=== PATIENT | female | born 1970 | race African-American/Black ===

== ENCOUNTER 2016-10-30 20:05 | Emergency (ER) | payer MEDICAID ==
[~2016-10-30] VITALS: Ht 154.9 cm; Wt 149.7 kg
[2016-10-30 21:01] LABS: APPEARANCE,URINE SLIGHTLY CLOUDY; KETONES,URINE NEGATIVE (NEGATIVE); LEUKOCYTE ESTERASE ,URINE 1+ (NEGATIVE); NITRITE,URINE NEGATIVE (NEGATIVE); PH,URINE 5 (4.5-8.0); PROTEIN,URINE 3+ (NEGATIVE); UROBILINOGEN,URINE NORMAL MG/DL (0.0-1.0)
[2016-10-30 21:09] LABS: BACTERIA,URINE MODERATE /HPF; RBC,URINE 15-20 /HPF (0 - 2); SQUAMOUS EPITHELIAL CELL,UR FEW /LPF (NONE/OCC); YEAST,URINE FEW /HPF
[2016-10-30] MEDS ORDERED: PROVERA10 MG ORAL (22:27)
[2016-10-30 23:10] VITALS: BP 132/81
--- NOTE | 2016-10-31 01:24 | Emergency Room Report ---
History of Present Illness General Chief Complaint: Female Urogenital Problems Source: Patient Present Illness HPI Patient is a 46-year-old female who presented after increased bleeding. Patient states that she was not . She had been having increased bleeding for approximately one month. Patient had gradual onset of symptoms. She denied any recent fevers.The patient denied feeling dizzy or lightheaded.She denied taking any anticoagulation. Allergies: Coded Allergies: No Known Allergies (Unverified , 10/30/16) Patient History Past Medical History: see triage record Last Menstrual Period: Currently on menstrual period Now: No Reviewed Nursing Documentation: PMH: Agreed, PSxH: Agreed Nursing Documentation-PMH Past Medical History: No History, Except For Hx Hypertension: Yes Hx Asthma: Yes Review of Systems All Other Systems: negative except mentioned in HPI Physical Exam Vital Signs Date Time Temp Pulse Resp B/P Pulse Ox O2 Delivery O2 Flow Rate FiO2 10/30/16 20:15 98.1 91 16 136/84 98 Room Air Sp02 EP Interpretation: reviewed, normal General Appearance: normal inspection, well appearing, no apparent distress, alert, GCS 15, obese Head: atraumatic ENT: normal ENT inspection, hearing grossly normal, normal voice Neck: normal inspection, full range of motion, supple, no bony tend Respiratory: normal inspection, lungs clear, normal breath sounds, no respiratory distress, no retraction, no wheezing Cardiovascular #1: regular rate, rhythm, no edema Gastrointestinal: normal inspection, normal bowel sounds, non tender, soft, no guarding, no hernia, overweight Genitourinary: no CVA tenderness, os closed Musculoskeletal: normal inspection, back normal, normal range of motion Neurologic: normal inspection, alert, oriented x3, responsive, demand generation manager III-XII nml as tested, speech normal Psychiatric: normal inspection, judgement/insight normal, mood/affect normal Skin: normal inspection, normal color, no rash Medical Decision Making Diagnostic Impression: Primary Impression: Metrorrhagia ER Course Patient presented for vaginal bleeding. Differential diagnosis included wasn't limited to ectopic , menorrhagia, coagulopathy, incomplete , threatened among others. Patient's benign exam and does not appear to require any further imaging or laboratory testing at this time. test was negative. Patient was given prescription for oral contraceptive pills she was advised followup with her [employer].The patient is advised to follow up with primary care doctor in 1-2 days. Patient is advised to return if any worsening condition or if any changes in status that are concerning. Last Vital Signs Date Time Temp Pulse Resp B/P Pulse Ox O2 Delivery O2 Flow Rate FiO2 10/30/16 23:10 97.9 84 15 132/81 99 Room Air Status: improved Disposition: HOME, SELF-CARE Condition: Stable Scripts Medroxyprogesterone Acet* (PROVERA*) 10 Mg Tablet 10 MG ORAL DAILY, #10 TAB 0 Refills Prov: Sawyer Castillo 10/30/16 Patient Instructions: Metrorrhagia Sawyer Castillo Oct 31, 2016 01:24
--- NOTE | 2016-10-31 10:50 | Diagnostic Imaging Report ---
Indication:Lower abdominal and pelvic pain Technique: Grayscale and duplex Doppler imaging of the pelvis performed utilizing a transabdominal scan and endovaginal scan. Comparison: None Findings: Complex debris and/or hematoma demonstrated within the endocervical canal in an area measuring about 3 x 4 cm. The endometrium is normal in appearance above this. Both ovaries are demonstrated and appear normal. We note that the test is negative. The central endometrial echo complex measures 7 mm. Uterus 9.4 x 5.7 x 3.9 CM. Right ovary 2.5 x 2.3 x 1.5 CM. Left ovary 3.3 x 3.2 x 1.9 CM. Impression: Complex mass in the endocervical canal likely hematoma. Followup is recommended. Study is negative otherwise. [facility] has communicated the preliminary results to the Emergency Department. Their findings are largely concordant with this report.
== END 2016-10-30 23:10 | disposition home or self-care (01) ==
LOC: EMR 20:40
DX: N92.0 Excessive and frequent menstruation with regular cycle (principal); I10 Essential (primary) hypertension; J45.909 Unspecified asthma, uncomplicated
CPT/HCPCS: 76856; 81003; 81025; 87086; 99283